=== PATIENT | female | born 1965 | race Two or more races ===

== ENCOUNTER 2019-02-01 10:07 | Outpatient (CLI) | payer OTHER | END 2019-02-01 10:14 | disposition home or self-care (01) | LOC: SONOGRAMA 10:07 → MAMO-SONO 10:15 | DX: M25.512 Pain in left shoulder (principal) ==

== ENCOUNTER 2020-02-14 13:40 | Outpatient (CLI) | payer OTHER | END 2020-02-14 15:00 | disposition home or self-care (01) | LOC: NUCLEAR 13:40 | PROVIDERS: ATTEND Obstetrics & Gynecology | DX: M85.89 Other specified disorders of bone density and structure, multiple sites (principal) ==

== ENCOUNTER 2020-04-02 13:13 | Outpatient (CLI) | payer OTHER | END 2020-04-02 13:18 | disposition home or self-care (01) | LOC: MRI 13:13 | DX: M50.30 Other cervical disc degeneration, unspecified cervical region (principal); M99.01 Segmental and somatic dysfunction of cervical region | CPT/HCPCS: 72141 ==

== ENCOUNTER → 2021-02-06 09:58 | Outpatient (CLI) | payer OTHER | END | disposition home or self-care (01) | LOC: MRI 09:58 | PROVIDERS: ATTEND Orthopaedic Surgery | DX: M48.02 Spinal stenosis, cervical region (principal); M53.84 Other specified dorsopathies, thoracic region | CPT/HCPCS: 72141 ==

== ENCOUNTER 2021-03-25 11:10 | Outpatient (CLI) | payer OTHER | END 2021-03-25 11:19 | disposition home or self-care (01) | LOC: RAD 11:10 | PROVIDERS: ATTEND Physical Medicine & Rehabilitation | DX: M75.31 Calcific tendinitis of right shoulder (principal); M25.511 Pain in right shoulder; M75.111 Incomplete rotator cuff tear or rupture of right shoulder, not specified as traumatic ==

== ENCOUNTER 2021-10-30 10:40 | Outpatient (CLI) | payer OTHER | END 2021-10-30 10:42 | disposition home or self-care (01) | LOC: MRI 10:40 | DX: M54.6 Pain in thoracic spine (principal) | CPT/HCPCS: 72146 ==

== ENCOUNTER 2021-12-31 10:58 | Outpatient (CLI) | payer OTHER | END 2021-12-31 11:11 | disposition home or self-care (01) | LOC: MRI 10:58 | PROVIDERS: ATTEND Physical Medicine & Rehabilitation | DX: M54.50 Low back pain, unspecified (principal); M54.16 Radiculopathy, lumbar region | CPT/HCPCS: 72148 ==

== ENCOUNTER 2022-02-13 13:41 | Outpatient (CLI) | payer OTHER | END 2022-02-13 13:56 | disposition home or self-care (01) | LOC: MAMO-SONO 13:41 | DX: Z12.31 Encounter for screening mammogram for malignant neoplasm of breast (principal); N64.4 Mastodynia ==

== ENCOUNTER 2022-02-26 08:59 | Outpatient (CLI) | payer OTHER | END 2022-02-26 09:08 | disposition home or self-care (01) | LOC: TOM 08:59 | DX: R31.29 Other microscopic hematuria (principal) ==

== ENCOUNTER 2023-07-06 12:26 | Outpatient (CLI) | payer OTHER | END 2023-07-06 12:41 | disposition home or self-care (01) | LOC: MRI 12:26 | PROVIDERS: ATTEND Physical Medicine & Rehabilitation | DX: M54.2 Cervicalgia (principal); M54.6 Pain in thoracic spine; M54.50 Low back pain, unspecified | CPT/HCPCS: 72141 ==